=== PATIENT | male | born 1980 | race Caucasian/White ===

== ENCOUNTER 2019-03-25 21:59 | Emergency (ER) | payer OTHER ==
[2019-03-25 22:07] VITALS: RESP 18
[2019-03-25] MEDS ORDERED: IPRATROPIUM-ALBUTEROL 3 ML NEB INHALATION STA (22:30)
[2019-03-25] MEDS ORDERED: methylPREDNISolone SOD SUCCI 125 MG/2 ML VIAL IV STA (22:30)
[2019-03-25 22:54] LABS: Basophils # (A) 0.1 k/uL (0-0.2); Basophils % (A) 2 %; Eosinophils # (A) 0.1 k/uL (0-0.7); Eosinophils % (A) 2 %; HCT 43.5 % (39.0-53.0); HGB 15.3 gm/dL (13.0-17.5); Lymphocytes # (A) 1.7 k/uL (1.0-4.8); Lymphocytes % (A) 28 %; MCH 31.8 pg (25.0-35.0); MCHC 35.2 g/dL (31.0-37.0); MCV 90.4 fL (80.0-100.0); Mean Platelet Volume 5.9; Monocytes # (A) 0.5 k/uL (0-1.0); Monocytes % (A) 8 %; Neutrophils # (A) 3.5 k/uL (1.3-7.7); Neutrophils % (A) 56 %; Platelet Count 274 k/uL (150-450); RBC 4.81 m/uL (4.30-5.90); WBC 6.1 k/uL (3.8-10.6)
--- NOTE | 2019-03-25 22:58 | XR ---
EXAMINATION TYPE: XR chest 2V DATE OF EXAM: 03/25/2019 COMPARISON: NONE HISTORY: Cough TECHNIQUE: Frontal and lateral views of the chest are obtained. FINDINGS: Heart and mediastinum are normal. Lungs are clear. Diaphragm is normal. Bony thorax appear s normal. IMPRESSION: Normal chest.
[2019-03-25 23:03] LABS: ALT 62 U/L (21-72); AST 27 U/L (17-59); African American GFR (CKD) >90 (>60 ml/min/1.73 sqM); Albumin 3.9 g/dL (3.5-5.0); Alkaline Phosphatase 43 U/L (38-126); Anion Gap 10 mmol/L; Blood Urea Nitrogen 17 mg/dL (9-20); Calcium 9.3 mg/dL (8.4-10.2); Carbon Dioxide 24 mmol/L (22-30); Chloride 106 mmol/L (98-107); Glucose 116 mg/dL (74-99); Potassium 3.9 mmol/L (3.5-5.1); Sodium 140 mmol/L (137-145); Total Bilirubin 0.2 mg/dL (0.2-1.3); Total Protein 6.5 g/dL (6.3-8.2)
--- NOTE | 2019-03-26 01:07 | ED ---
URI HPI - General Chief Complaint: Upper Respiratory Infection Stated Complaint: Chest cold Time Seen by Provider: 03/25/19 22:05 Source: patient Mode of arrival: ambulatory Limitations: no limitations - History of Present Illness Initial Comments: The patient is a 30-year-old male who presents to the emergency room and from [facility]. He reports that he has had 4 days of a nonproductive cough and shortness of breath. He has had subjective chills without recorded fever. States that one of the other members at [facility] has been diagnosed with pneumonia. Reports that he was very sick and hospitalized in the past for pneumonia and is concerned that he may have contracted it. He denies any chest pain. No history of DVT or PE. No family history of blood clotting disorders. Recent surgery or prolonged travel. He is at [facility] for cocaine, heroin and alcohol abuse. Has not used any illicit substances and 30 days. He denies back or flank pain. No hemoptysis. Denies any headaches or vision changes. No abdominal pain or changes in his bowel or bladder habits. He has not been placed on any medications for his symptoms. There are no alleviating, precipitating or modifying factors - Related Data Home Medications Medication Instructions Recorded Confirmed Acetaminophen [Tylenol Arthritis] 650 mg PO Q4H PRN 03/25/19 03/25/19 Calcium Carb/Magnesium Ox,Carb 2 tab PO DAILY 03/25/19 03/25/19 [Jose-Mag 500-250 MG Chewable] Ibuprofen [Motrin] 600 mg PO Q6HR PRN 03/25/19 03/25/19 Mirtazapine [Remeron] 15 mg PO HS PRN 03/25/19 03/25/19 Multivitamins, Thera [Multivitamin 1 tab PO DAILY 03/25/19 03/25/19 (formulary)] Ondansetron HCl [Zofran] 8 mg PO Q6H PRN 03/25/19 03/25/19 Thiamine HCl [Vitamin B-1] 100 mg PO DAILY 03/25/19 03/25/19 busPIRone HCl [Buspar] 10 mg PO TID 03/25/19 03/25/19 Previous Rx's Medication Instructions Recorded Albuterol Sulfate [Proair Hfa] 1 - 2 puff INHALATION Q4HR PRN #1 03/26/19 inhaler Azithromycin [Zithromax Z-pack] 250 mg PO DIRECTED #1 pack 03/26/19 predniSONE 20 mg PO BID #10 tab 03/26/19 Allergies Allergy/AdvReac Type Severity Reaction Status Date / Time No Known Allergies Allergy Verified 03/25/19 22:15 Review of Systems ROS Statement: Those systems with pertinent positive or pertinent negative responses have been documented in the HPI. ROS Other: All systems not noted in ROS Statement are negative. Past Medical History Past Medical History: Pneumonia History of Any Multi-Drug Resistant Organisms: None Reported Past Surgical History: No Surgical Hx Reported Past Psychological History: No Psychological Hx Reported Smoking Status: Current every day smoker Past Alcohol Use History: Abuse, Daily, Heavy Past Drug Use History: Cocaine General Exam Limitations: no limitations General appearance: alert, in no apparent distress Head exam: Present: atraumatic, normocephalic, normal inspection Eye exam: Present: normal appearance, PERRL, EOMI. Absent: scleral icterus, conjunctival injection, periorbital swelling ENT exam: Present: normal exam, mucous membranes moist Neck exam: Present: normal inspection. Absent: tenderness, meningismus, lymphadenopathy Respiratory exam: Present: wheezes, other (bronchospastic cough). Absent: respiratory distress, rales, rhonchi, stridor, accessory muscle use Cardiovascular Exam: Present: regular rate, normal rhythm, normal heart sounds. Absent: systolic murmur, diastolic murmur, rubs, gallop, clicks GI/Abdominal exam: Present: soft, normal bowel sounds. Absent: distended, tenderness, guarding, rebound, rigid Extremities exam: Present: normal inspection, full ROM, normal capillary refill. Absent: tenderness, pedal edema, joint swelling, calf tenderness Back exam: Present: normal inspection Neurological exam: Present: alert, oriented X3, CN II-XII intact Psychiatric exam: Present: normal affect, normal mood Skin exam: Present: warm, dry, intact, normal color. Absent: rash Course Vital Signs 03/25/19 03/25/19 03/25/19 22:04 23:08 23:18 Temperature 98 F Pulse Rate 69 68 76 Respiratory 18 Rate Blood Pressure 118/81 O2 Sat by Pulse 98 Oximetry 03/26/19 03/26/19 00:06 01:25 Temperature 98.2 F Pulse Rate 70 67 Respiratory 18 18 Rate Blood Pressure 124/74 129/76 O2 Sat by Pulse 99 100 Oximetry Medical Decision Making - Medical Decision Making Upon arrival the patient was placed into room 7. A thorough history and physical exam is performed. Auscultation patient's lungs demonstrates diffuse w heeze. He was given a DuoNeb breathing treatment. Peripheral IV was established patient was given 125 mg Solu-Medrol. Laboratory studies were conducted and the patient was sent for chest x-ray. Laboratory studies are essentially unremarkable. Influenza A and B are negative. Chest x-ray demonst rates no signs of pneumonia. I did reevaluate the patient he is breathing comfortably in bed. No further wheeze. He does not require any supplemental O2. I did discuss discharging the patient home with the inhaler, Zithromax and a course of steroids. Patient did agree to this. Return parameters were discussed. The patient was then discharged back to use [facility] in stable condition. - Lab Data Result diagrams: 03/25/19 22:46 03/25/19 22:46 Lab Results 03/25/19 03/25/19 03/25/19 Range/Units 22:46 22:46 22:46 WBC 6.1 (3.8-10.6) k/uL RBC 4.81 (4.30-5.90) m/uL Hgb 15.3 (13.0-17.5) gm/dL Hct 43.5 (39.0-53.0) % MCV 90.4 (80.0-100.0) fL MCH 31.8 (25.0-35.0) pg MCHC 35.2 (31.0-37.0) g/dL RDW 13.0 (11.5-15.5) % Plt Count 274 (150-450) k/uL Neutrophils % 56 % Lymphocytes % 28 % Monocytes % 8 % Eosinophils % 2 % Basophils % 2 % Neutrophils # 3.5 (1.3-7.7) k/uL Lymphocytes # 1.7 (1.0-4.8) k/uL Monocytes # 0.5 (0-1.0) k/uL Eosinophils # 0.1 (0-0.7) k/uL Basophils # 0.1 (0-0.2) k/uL Sodium 140 (137-145) mmol/L Potassium 3.9 (3.5-5.1) mmol/L Chloride 106 (98-107) mmol/L Carbon Dioxide 24 (22-30) mmol/L Anion Gap 10 mmol/L BUN 17 (9-20) mg/dL Creatinine 0.79 (0.66-1.25) mg/dL Est GFR (CKD-EPI)AfAm >90 (>60 ml/min/1.73 sqM) Est GFR (CKD-EPI)NonAf >90 (>60 ml/min/1.73 sqM) Glucose 116 H (74-99) mg/dL Plasma Lactic Acid Juan (0.7-2.0) mmol/L Calcium 9.3 (8.4-10.2) mg/dL Total Bilirubin 0.2 (0.2-1.3) mg/dL AST 27 (17-59) U/L ALT 62 (21-72) U/L Alkaline Phosphatase 43 (38-126) U/L NT-Pro-B Natriuret Pep pg/mL Total Protein 6.5 (6.3-8.2) g/dL Albumin 3.9 (3.5-5.0) g/dL Influenza Type A RNA Not Detected (Not Detectd) Influenza Type B (PCR) Not Detected (Not Detectd) 03/25/19 03/25/19 Range/Units 22:46 22:46 WBC (3.8-10.6) k/uL RBC (4.30-5.90) m/uL Hgb (13.0-17.5) gm/dL Hct (39.0-53.0) % MCV (80.0-100.0) fL MCH (25.0-35.0) pg MCHC (31.0-37.0) g/dL RDW (11.5-15.5) % Plt Count (150-450) k/uL Neutrophils % % Lymphocytes % % Monocytes % % Eosinophils % % Basophils % % Neutrophils # (1.3-7.7) k/uL Lymphocytes # (1.0-4.8) k/uL Monocytes # (0-1.0) k/uL Eosinophils # (0-0.7) k/uL Basophils # (0-0.2) k/uL Sodium (137-145) mmol/L Potassium (3.5-5.1) mmol/L Chloride (98-107) mmol/L Carbon Dioxide (22-30) mmol/L Anion Gap mmol/L BUN (9-20) mg/dL Creatinine (0.66-1.25) mg/dL Est GFR (CKD-EPI)AfAm (>60 ml/min/1.73 sqM) Est GFR (CKD-EPI)NonAf (>60 ml/min/1.73 sqM) Glucose (74-99) mg/dL Plasma Lactic Acid Juan 1.0 (0.7-2.0) mmol/L Calcium (8.4-10.2) mg/dL Total Bilirubin (0.2-1.3) mg/dL AST (17-59) U/L ALT (21-72) U/L Alkaline Phosphatase (38-126) U/L NT-Pro-B Natriuret Pep 44 pg/mL Total Protein (6.3-8.2) g/dL Albumin (3.5-5.0) g/dL Influenza Type A RNA (Not Detectd) Influenza Type B (PCR) (Not Detectd) Disposition Clinical Impression: Cough Disposition: HOME SELF-CARE Instructions (If sedation given, give patient instructions): Upper Respiratory Infection (ED) Additional Instructions: Please follow-up with your care physician in 2-4 days for reevaluation. Use the inhaler, antibiotic and steroids as directed. Return to the emergency room for any new or worsening symptoms Prescriptions: predniSONE 20 mg PO BID #10 tab Albuterol Sulfate [Proair Hfa] 1 - 2 puff INHALATION Q4HR PRN #1 inhaler PRN Reason: difficulty in breathing Azithromycin [Zithromax Z-pack] 250 mg PO DIRECTED #1 pack Is patient prescribed a controlled substance at d/c from ED?: No Referrals: None,Stated [Primary Care Provider] - 1-2 days Time of Disposition: 01:07
[2019-03-26 01:26] VITALS: BP 129/76; PULSE 67; TEMP 98.2
== END 2019-03-26 01:26 | disposition home or self-care (01) ==
LOC: EC 21:59
DX: R05 Cough (principal); R06.2 Wheezing; R06.02 Shortness of breath; R68.83 Chills (without fever); F14.11 Cocaine abuse, in remission; F10.11 Alcohol abuse, in remission; F11.11 Opioid abuse, in remission; F17.200 Nicotine dependence, unspecified, uncomplicated
CPT/HCPCS: 36415; 94640; 83880; 80053; 83605; 85025; 87502; 71046; 99285; 96374; J2930